=== PATIENT | female | born 1930 | race Caucasian/White ===

== ENCOUNTER 2017-03-04 13:01 | Inpatient (IN) | payer MEDICARE, BC ==
[~2017-03-04] VITALS: Ht 147.3 cm; Wt 39.2 kg
[2017-03-04] MEDS ORDERED: SOD CHLORIDE 0.9% 500 ML IV STA (14:40)
[2017-03-04] MEDS ORDERED: ACETAMINOPHEN 500 MG TAB PO STA (14:40)
--- NOTE | 2017-03-04 14:49 | ERA ---
ER Documentation Chief Complaint Date/Time DATE: 03/04/17 TIME: 14:45 Chief Complaint SYNCOPAL EPISODE FOR 3 MINS THIS MORNING; CHEST PAIN HPI 86-year-old female who presents with her family member. It appears the patient had a syncopal episode today. The patient had her regular breakfast and medications and went for a walk. When she came home she was not feeling well sat down and had a syncopal episode that was witnessed lasting approximately 2- 3 minutes without seizure activity. The patient had returned to baseline. The patient has describes some mild chest discomfort but did not have a prodrome of chest pain. She also describes a mild headache. The patient recently lost her son and has had increased social stressors. She denies any pleuritic pain or significant shortness of breath but has noted right lower extremity swelling for approximately 2-3 months. She is unsure if she has had an ultrasound. She recently had blood test that showed baseline anemia that is unchanged, no melena no hematochezia. She denies any mid back pain or neck pain. ROS All systems reviewed and are negative except as per history of present illness. Medications Home Meds Reported Medications Multivits-Min/Iron/FA/Lutein (Centrum Silver Women Tablet) 1 Each Tablet, 1 EACH PO DAILY, TAB 03/04/17 Sodium Polystyrene Sulfonate (Sodium Polystyrene Sulfonate Powder) 454 Gm Powder , 30 GM PO Q7D, EA 03/04/17 [Ferrous Sulfate] No Conflict Check, 65 MG PO DAILY 03/04/17 Olmesartan Medoxomil (Benicar) 40 Mg Tablet, 40 MG PO DAILY, #30 TAB 03/04/17 Metoprolol Succinate* (Toprol XL*) 25 Mg Tab.sr.24h, 25 MG PO DAILY, #30 TAB 03/04/17 Omeprazole* (Omeprazole*) 20 Mg Capsule.dr, 20 MG PO QAM, #30 CAP 03/04/17 Glipizide* (Glipizide*) 5 Mg Tablet, 5 MG PO AC BREAKFAST DINNER, TAB 03/04/17 Metformin Hcl* (Metformin Hcl*) 500 Mg Tablet, 500 MG PO WITH BREAKFAST DINNE, # 60 TAB 03/04/17 Aspirin* (Aspirin* EC) 81 Mg Tablet.dr, 81 MG PO DAILY, TAB 03/04/17 Hydralazine Hcl* (Hydralazine Hcl*) 50 Mg Tab, 50 MG PO TID, #90 TAB 03/04/17 Gabapentin* (Gabapentin*) 300 Mg Capsule, 300 MG PO QHS, #30 CAP 03/04/17 Amlodipine Besylate* (Amlodipine Besylate*) 10 Mg Tablet, 10 MG PO DAILY, #30 TAB 03/04/17 Atorvastatin Calcium* (Atorvastatin Calcium*) 20 Mg Tablet, 20 MG PO QHS, #30 TAB 03/04/17 Discontinued Reported Medications Ferrous Sulfate* (Ferrous Sulfate*) 325 Mg Tabec, 65 MG PO DAILY, TAB 03/04/17 Allergies Allergies: Coded Allergies: Penicillins (Unverified Allergy, Unknown, 03/04/17) PMhx/Soc History of Surgery: No Anesthesia Reaction: No Hx Neurological Disorder: No Hx Respiratory Disorders: No Hx Cardiac Disorders: Yes Hx Psychiatric Problems: No Hx Miscellaneous Medical Probl: Yes (HTN, diabetes) Hx Alcohol Use: No Hx Substance Use: No Hx Tobacco Use: No Smoking Status: Never smoker FmHx Family History: No diabetes Physical Exam Vitals Vital Signs Date Time Temp Pulse Resp B/P Pulse Ox O2 Delivery O2 Flow Rate FiO2 03/04/17 15:09 64 14 190/61 98 Room Air 03/04/17 13:06 98.1 64 18 196/116 95 Physical Exam General: Well developed, well nourished, no acute distress Head: Normocephalic, atraumatic. Eyes: Pupils equally reactive, EOM intact ENT: Moist mucous membranes Neck: Supple, no lymphadenopathy Respiratory: Lungs clear bilaterally, no distress Cardiovascular: RRR, no murmurs, rubs, or gallops Abdominal: Soft, non-tender, non-distended, no peritoneal signs : Deferred MSK: No edema, very mild right lower extremity unilateral swelling, 5/5 strength , no pulse deficits Neurologic: Alert and oriented, moving all extremities, normal speech, no focal weakness, no cerebellar signs Skin: No rash Psych: Normal mood Result Diagram: 03/04/17 1525 03/04/17 1525 Results 24 hrs Laboratory Tests Test 03/04/17 15:20 03/04/17 15:25 Bedside Glucose 267mg/dL White Blood Count 10.410^3/ul Red Blood Count 3.8810^6/ul Hemoglobin 11.4g/dl Hematocrit 33.7% Mean Corpuscular Volume 86.9fl Mean Corpuscular Hemoglobin 29.4pg Mean Corpuscular Hemoglobin Concent 33.8g/dl Red Cell Distribution Width 14.6% Platelet Count 86223^3/UL Mean Platelet Volume 10.5fl Neutrophils % 80.3% Lymphocytes % 9.4% Monocytes % 9.2% Eosinophils % 0.2% Basophils % 0.4% Nucleated Red Blood Cells % 0.0/100WBC Neutrophils # 8.310^3/ul Lymphocytes # 1.010^3/ul Monocytes # 1.010^3/ul Eosinophils # 0.010^3/ul Basophils # 0.010^3/ul Nucleated Red Blood Cells # 0.010^3/ul Prothrombin Time 11.7Sec Prothrombin Time Ratio 0.9 INR International Normalized Ratio 0.86 Activated Partial Thromboplast Time 27.3Sec Urine Color LT. YELLOW Urine Clarity CLEAR Urine pH 6.0 Urine Specific Miracle 1.015 Urine Ketones NEGATIVE Urine Nitrite NEGATIVE Urine Bilirubin NEGATIVE Urine Urobilinogen 0.2 E.U./dL Urine Leukocyte Esterase 2+ Urine Microscopic RBC 5-10/HPF Urine Microscopic WBC >50/HPF Urine Bacteria RARE Urine Hemoglobin 1+ Urine Glucose 0.5%% Urine Total Protein 2+ Sodium Level 137mmol/L Potassium Level 4.3mmol/L Chloride Level 100mmol/L Carbon Dioxide Level 23mmol/L Anion Gap 18 Blood Urea Nitrogen 23mg/dl Creatinine 0.81mg/dl Glucose Level 272mg/dl Calcium Level 9.7mg/dl Troponin I < 0.012ng/ml Current Medications Medications (Trade) Dose Ordered Sig/Yulisa Route PRN Reason Start Time Stop Time Status Last Admin Dose Admin Sodium Chloride (NS) 500 ml @ 500 mls/hr Q1H STAT IV 03/04/17 14:40 03/04/17 15:39 DC 03/04/17 15:46 Acetaminophen 1000 mg 1,000 mg ONCE STAT PO 03/04/17 14:40 03/04/17 14:42 DC 03/04/17 15:46 Ceftriaxone Sodium (Rocephin) 50 ml @ ud STK-MED ONCE IVPB 03/04/17 17:28 03/04/17 19:16 DC Aspirin (Aspirin) 325 mg STK-MED ONCE .ROUTE 03/04/17 18:57 03/04/17 19:17 DC IV Flush 10 ml 10 ml STK-MED ONCE .ROUTE 03/04/17 18:59 03/04/17 19:17 DC Sodium Chloride (NS) 100 ml @ ud STK-MED ONCE .ROUTE 03/04/17 18:59 03/04/17 19:17 DC Iodixanol (Visipaque Locm) 100 ml STK-MED ONCE .ROUTE 03/04/17 18:59 03/04/17 19:17 DC Enoxaparin Sodium (Lovenox) 60 mg STK-MED ONCE .ROUTE 03/04/17 19:02 03/04/17 19:18 DC Procedures/MDM EKG, MONITORS, & DIAGNOSTIC IMAGING: EKG: I reviewed and interpreted a 12-lead EKG. Rhythm: Normal sinus rhythm Ectopy: None Intervals: No abnormalities ST segments: No elevations or depressions T waves: No contiguous inversions Chest x-ray: Impression is cardiomegaly with calcified atherosclerosis of the aorta. Small right pleural effusion with associated basilar atelectasis. Hyperexpanded lungs with diffuse mild interstitial prominence in both lungs. Interstitial prominence could be chronic. Findings could reflect COPD. Dr. David at 3:[address] brain: System error and CT imaging is faxed to the emergency department. Impression from radiologist is 1. No intracranial hemorrhage or acute intracranial abnormality. #2 mild chronic appropriate volume loss. #3 atherosclerotic calcification of the internal carotid and vertebral arteries. Signed by Dr. dewey at 4:27 PM Right lower extremity duplex: Impression #1 no evidence of acute deep venous thrombosis involving the right lower extremity. 2. Linear echogenic foci within the right common and superficial femoral vein compatible with chronic DVT CTPA: PENDING LAB INTERPRETATION: There is a system issue therefore faxed laboratory reports have been given to me. Patient has a WBC of 10.4 hemoglobin of 11.4 and platelets of 321. Normal coagulation profile. Urinalysis with greater than 50 WBCs and positive leukocyte esterase, negative nitrites. Chemistry profile with a sodium of 137 potassium 4.3 chloride of 100 bicarb 23 because of 272 BUN of 23 creatinine is 0.81 troponin negative. MEDICAL DECISION MAKING: The patient presents to the emergency room with an episode of syncope now with hypertension headache and some chest discomfort. Her presentation has a very broad differential given her age and comorbidities. She also has significant social stressors. Given her clinical scenario however I must be concerned for possible cardiac arrhythmia, ACS, intracranial hemorrhage. Low clinical concern for subarachnoid hemorrhage. The patient did not have a prodrome of headache or chest pain therefore dissection, pulmonary embolism, subarachnoid hemorrhage seem less likely. The patient does however have mild right lower extremity swelling, this appears to be chronic. I do not suspect pulmonary embolism however if the patient has a positive duplex then CTPA would be indicated. Given that the patient has no tachycardia no pleuritic pain no significant hypoxia I do not believe the emergent CTPA is necessary at this time. I would strongly recommend hospitalization given the patient's age, comorbidities and chest pain. Aspirin to be held until CT imaging is negative. ER COURSE: The patient was given aspirin after negative CT brain. There is significant delay in the patient's throughput because of systemwide IT issues and delay in laboratory results, diagnostic imaging results. The patient has a lower extremity duplex that shows no evidence of acute DVT however possible chronic DVT. For this reason a CTPA has been ordered to rule out pulmonary embolism as the cause of the patient's syncope. She was given 1 mg/kg of Lovenox and the patient and family members describe no contraindications to anticoagulation. Orthostatic vital signs are normal, per request of admitting team. I kept the patient and/or family informed of laboratory and diagnostic imaging results throughout the emergency room course. DISPOSITION PLAN: Telemetry admission for management of syncope, chest pain CONSULTATION: Accepting care team and consultations: I discussed the current laboratory data, diagnostic imaging and emergency care provided. Admitting team: Dr. Goss Admitting team indication: Insurance directed Of note the CTPA is pending, to be followed by oncoming ER md and admitting team. Patient remains stable. Lovenox on board. 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
[2017-03-04 15:29] LABS: ADD SCAN DIFF NO
[2017-03-04 15:32] LABS: BASOPHILS % 0.4 % (0.0-2.0); EOSINOPHILS % 0.2 % (0.0-7.0); HEMATOCRIT 33.7 % (37.0-47.0); HEMOGLOBIN 11.4 g/dl (12.0-16.0); LYMPHOCYTES % 9.4 % (15.0-51.0); MEAN CORPUSCULAR HEMOGLOBIN 29.4 pg (29.0-33.0); MEAN CORPUSCULAR HGB CONC 33.8 g/dl (32.0-37.0); MEAN CORPUSCULAR VOLUME 86.9 fl (82.0-101.0); MEAN PLATELET VOLUME 10.5 fl (7.4-10.4); MONOCYTES % 9.2 % (0.0-11.0); NEUTROPHIL # 8.3 10^3/ul (1.6-7.5); NEUTROPHILS % 80.3 % (39.0-77.0); PLATELET COUNT 321 10^3/UL (140-415); RED BLOOD COUNT 3.88 10^6/ul (4.20-5.40); RED CELL DISTRIBUTION WIDTH 14.6 % (11.5-14.5); WHITE BLOOD COUNT 10.4 10^3/ul (4.8-10.8)
[2017-03-04 15:33] LABS: ADD UMIC YES; UR BILIRUBIN (Dip) NEGATIVE (NEGATIVE); UR BLOOD (Dip) 1+ (NEGATIVE); UR CLARITY CLEAR (CLEAR); UR COLOR LT. YELLOW (YELLOW); UR KETONES (Dip) NEGATIVE (NEGATIVE); UR LEUKOCYTE ESTERASE (Dip) 2+ (NEGATIVE); UR NITRITE (Dip) NEGATIVE (NEGATIVE); UR TOTAL PROTEIN (Dip) 2+ (NEGATIVE); UR UROBILINOGEN (Dip) 0.2 E.U./dL (0.1-1.0)
[2017-03-04 15:42] LABS: UR BACTERIA RARE
[2017-03-04 15:46] LABS: INR 0.86; PROTIME 11.7 Sec (12.2-14.2); PT RATIO 0.9
[2017-03-04 15:49] LABS: ANION GAP 18 (8-16); BLOOD UREA NITROGEN 23 mg/dl (7-20); CALCIUM 9.7 mg/dl (8.4-10.2); CARBON DIOXIDE 23 mmol/L (21-31); CHLORIDE 100 mmol/L (97-110); CREATININE 0.81 mg/dl (0.44-1.00); GLUCOSE 272 mg/dl (70-220); POTASSIUM 4.3 mmol/L (3.5-5.1); SODIUM 137 mmol/L (135-144)
[2017-03-04 15:53] LABS: PARTIAL THROMBOPLASTIN TIME 27.3 Sec (25.0-35.0)
[2017-03-04] MEDS ORDERED: ATOR20TA38 PO (15:57)
[2017-03-04] MEDS ORDERED: AMLO-147 PO (15:58)
[2017-03-04] MEDS ORDERED: GABA300C16 PO (15:58)
[2017-03-04] MEDS ORDERED: HYDR-3672 PO (15:59)
[2017-03-04] MEDS ORDERED: ASPI-664 PO (15:59)
[2017-03-04] MEDS ORDERED: METF500T4 PO (16:00)
[2017-03-04] MEDS ORDERED: GLIP5TAB13 PO (16:00)
[2017-03-04 16:02] LABS: TROPONIN-I < 0.012 ng/ml (0.00-0.12)
[2017-03-04] MEDS ORDERED: OMEP20CA16 PO (16:02)
[2017-03-04] MEDS ORDERED: METO25TA7 PO (16:02)
[2017-03-04] MEDS ORDERED: OLME40TA14 PO (16:03)
[2017-03-04] MEDS ORDERED: FER325 PO (16:08)
[2017-03-04] MEDS ORDERED: FERROUS SULFATE PO (16:10)
[2017-03-04] MEDS ORDERED: [UNRECOGNIZED DRUG - CODE] PO (16:12)
[2017-03-04] MEDS ORDERED: MULT-853 PO (16:13)
[2017-03-04] MEDS ORDERED: CEFTRIAXONE 1 GM/50 ML (PMX) 50 ML IVPB ONE (17:28)
[2017-03-04] MEDS ORDERED: ASPIRIN 325 MG TAB ONE (18:57)
[2017-03-04] MEDS ORDERED: SOD CHLORIDE 0.9% 100 ML ONE (18:59)
[2017-03-04] MEDS ORDERED: IODIXANOL LOCM 100 ML BTL ONE (18:59)
[2017-03-04] MEDS ORDERED: ENOXAPARIN 60 MG/0.6 ML SYG ONE (19:02)
--- NOTE | 2017-03-04 19:13 | RADRPT ---
PROCEDURE: CT Brain without contrast. CLINICAL INDICATION: Syncope. TECHNIQUE: A multiplanar CT of the brain was performed on a CT scanner utilizing axial imaging fro m the skull base through the vertex without IV contrast. The CTDIvol is 44.52 mGy and the DLP is 6 ml 30.2 mGycm. One or more of the following dose reduction techniques were utilized: Automated exp osure control, adjustment of the mA and/or kV according to patient size, use of iterative reconstruc tion technique. COMPARISON: None FINDINGS: No evidence of intracranial hemorrhage or abnormal extra-axial fluid collection. 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 Physiologic left basal ganglia calcification. The brain parench yma is otherwise normal attenuation and morphology with preservation of aldana white differentiation. The ventricles and subarachnoid spaces are prominent compatible with age appropriate volume loss. Atherosclerotic calcification of the internal carotid and vertebral arteries. The basal cisterns, posterior fossa contents, brainstem, craniocervical junction, orbits, pituitary axis, paranasal sinuses, mastoid air cells, and calvarium are unremarkable. IMPRESSION: 1. No intracranial hemorrhage or acute intracranial abnormality. 2. Mild chronic appropriate volume loss. 3. Atherosclerotic calcification of the internal carotid and vertebral arteries. RPTAT:AAJJ Physician Robert Date Time Electronically viewed and signed by Physician Robert on 03/04/2017 16:27 FELA/
--- NOTE | 2017-03-04 19:13 | RADRPT ---
PROCEDURE: XR Chest 1 view. CLINICAL INDICATION: Shortness of breath and syncope. TECHNIQUE: AP views of the chest were obtained. COMPARISON: None. FINDINGS: The heart is large. Calcified atherosclerosis is noted in the aorta. The lungs are hyperexpanded. Interstitial prominence is seen in both lungs. Blunting of the right costophrenic angle is seen. A telectasis is noted at the right lung base. The osseous structures are osteopenic, but appear gross ly intact. Degenerative changes are seen in the shoulders. IMPRESSION: Cardiomegaly with calcified atherosclerosis in the aorta. Small right pleural effusion with associated basilar atelectasis. Hyperexpanded lungs with diffuse mild interstitial prominence in both lungs. Interstitial prominenc e could be chronic. Findings could reflect COPD. RPTAT: AA .Edison David MD, Date Time Electronically viewed and signed by .Edison David MD, on 03/04/2017 15:46 .P/
--- NOTE | 2017-03-04 19:13 | RADRPT ---
PROCEDURE: US DVT. CLINICAL INDICATION: Right lower extremity pain. TECHNIQUE: Multiple longitudinal and transverse images of the right lower extremity veins were obt ained with aldana scale and color Doppler imaging. 2D grayscale measurements with compression, color Doppler flow, and augmentation was performed. COMPARISON: No prior studies are available for comparison. FINDINGS: The right common femoral, superficial femoral and popliteal veins are normally compressible througho ut. There is linear echogenic material in the right common and proximal superficial femoral vein ruffin ggesting a chronic deep venous thrombosis. Color flow otherwise demonstrates normal filling of the vessel. Normal waveforms are visualized and there is normal response to augmentation. IMPRESSION: 1. No evidence of an acute deep vein thrombosis involving the right lower extremity. 2. Linear echogenic foci within the right common and superficial femoral vein compatible with chron ic deep venous thrombosis. RPTAT: HMVK .Jean Morales MD, MD Date Time Electronically viewed and signed by .Jean Morales MD, MD on 03/04/2017 17:37 .K/
[2017-03-04] MEDS ORDERED: ACETAMINOPHEN 325 MG TAB PO PRN ×2 (19:30→22:00)
[2017-03-04] MEDS ORDERED: ENOXAPARIN 40 MG/0.4 ML SYG SC ONE (19:30)
[2017-03-04] MEDS ORDERED: ONDANSETRON 4 MG INJ IV PRN ×2 (19:30→22:00)
[2017-03-04] MEDS ORDERED: morphine 2 MG INJ IV PRN (22:00)
[2017-03-04 22:21] VITALS: BP 194/84; RESP 18
[2017-03-04 22:27] VITALS: PULSE 50
[2017-03-04 22:30] VITALS: Ht 147.3 cm; Wt 39.2 kg
[2017-03-05] VITALS (15 sets, daily range): BP systolic 131–186; BP diastolic 63–84; PULSE 44–55; RESP 16–20
[2017-03-05] MEDS ORDERED: PANTOPRAZOLE (EC) 40 MG TAB PO SCH (06:00)
[2017-03-05] MEDS: metFORMIN 500 MG TAB PO SCH ×2 (08:22→18:10)
[2017-03-05] MEDS: INSULIN ASPART [NOVOLOG] 3 ML PEN SC SCH ×3 (08:36→18:15)
[2017-03-05] MEDS ORDERED: NON-FORMULARY/PATIENT OWN MED (Omeprazole* 20 MG) PO SCH (09:00)
[2017-03-05] MEDS ORDERED: AMLODIPINE 10 MG TAB PO SCH (09:00)
[2017-03-05] MEDS ORDERED: LOSARTAN 50 MG TAB PO SCH (09:00)
[2017-03-05] MEDS ORDERED: ASPIRIN (EC) 81 MG TAB PO SCH (09:00)
[2017-03-05] MEDS ORDERED: METOPROLOL (XL) 25 MG TAB PO SCH (09:00)
[2017-03-05] MEDS ORDERED: LEVOFLOXACIN 500 MG TAB PO SCH (09:00)
[2017-03-05] MEDS ORDERED: NON-FORMULARY/PATIENT OWN MED (Olmesartan Medoxomil (Benicar) 40 MG) PO SCH (09:00)
--- NOTE | 2017-03-05 10:23 | HP ---
DATE OF ADMISSION: 03/04/2017 CHIEF COMPLAINT: Dizziness. HISTORY OF PRESENT ILLNESS: Ms. Goodwin presents to the emergency room at [facility] an episode of dizziness and possible passing out, though the history is not clear that she actuall y did lose consciousness. She certainly did not fall to the ground. What she relates is that she b ecame dizzy and unable to stand after going to the toilet. She states that she frequently suffers w ith dizziness, especially after taking her medications and especially when standing up. This has be en going on for some time. She has discussed it with her primary care physician who blames it on th e medications, according to her daughter. PAST MEDICAL HISTORY: Significant for hypertension and diabetes. MEDICATIONS: As an outpatient include 1. Norvasc 10 mg daily. 2. Lipitor 20 mg daily. 3. Hydralazine 50 mg 3 times a day. 4. Metoprolol 25 mg daily. 5. Benicar 40 mg daily. 6. Aspirin 81 mg daily. 7. Neurontin 300 mg daily. 8. Omeprazole 20 mg daily. 9. Glipizide 5 mg daily. 10. Metformin 500 mg b.i.d. 11. Multivitamin. 12. Iron sulfate. ALLERGIES: PENICILLIN. SOCIAL HISTORY: The patient lives at home in [place] with her daughter and daughter's famil y. She does not use a cane or a walker. She denies tobacco, alcohol, or illicit drug use but is ot herwise independent of activities of daily living. She does acknowledge that there have been many f alls. FAMILY HISTORY: Noncontributory. REVIEW OF SYSTEMS: Five systems reviewed and found not to be revealing. PHYSICAL EXAMINATION: VITAL SIGNS: Blood pressure is 176/77, pulse rate 47, respirations 20, temperature is 98.4. It domenico uld be noted the patient had orthostatic vital signs which revealed a lying blood pressure of 186/84 , pulse rate 47, and a standing blood pressure of 131/63, pulse rate 50 representing a full 30 point drop in mean arterial pressure. GENERAL: Pleasant elderly woman. No acute distress. Some suggestions of mild cognitive impairment . HEENT: Normocephalic, atraumatic without evident scleral icterus, perioral cyanosis. Mucous membra michaela moist. NECK: Soft and supple without masses. No evidence of jugular venous distention or carotid bruits. CHEST: Clear to auscultation and percussion bilaterally. HEART: Regular rate and rhythm, S1-S2, no added sounds. ABDOMEN: Soft, nontender, nondistended without palpable hepatosplenomegaly. EXTREMITIES: Without clubbing, cyanosis, or edema. SKIN: Without rashes. NEUROLOGICAL: Cranial nerves III through XII are intact. Tone, power, and coordination intact x4 l imbs. The patient was able to stand up on her own power; however, after doing so, she described althea t she had the dizziness again that was similar to what happened to her previously. LABORATORY STUDIES: Reveal hemoglobin 11.4 g/dL, white count of 10,400, platelets of 321,000. INR is 0.9. Sodium 137, potassium 4.3, chloride 100, bicarbonate 23, BUN 23, creatinine 0.81, glucose 2 72. Troponin is negative. UA shows greater than 50 white blood cells. IMAGING: CT scan of brain shows chronic volume loss. Chest x-ray reveals hyperexpansion with mild cardiomegaly. Venous Doppler of the legs shows a chronic thrombus in the right common femoral vein. ASSESSMENT AND PLAN: 1. Syncope: Most likely represents presyncope, almost certainly related to orthostatic hypotension caused by hypertension, antihypertensive medications, as well as diabetes with neuropathy. We will plan to add TEDs and abdominal binder. Begin physical therapy for symptom management. A detailed explanation and action plan regarding these symptoms has been provided to the patient's daughter. 2. Cardiac: Doubt any insidious cause of syncope. Await echocardiogram. 3. Diabetes with neuropathy. Continue current. 4. Anticipate discharge to home this p.m. following echocardiogram and physical therapy. We will p kendal to arrange home health physical therapy. Dictated By: TWAN BROWN MD RER/NTS Conf#: [id number] DID#: [id number]
--- NOTE | 2017-03-05 10:28 | RADRPT ---
PROCEDURE: CT angiogram chest. CLINICAL INDICATION: Shortness of breath. TECHNIQUE: CT angiogram of the chest was performed utilizing axial images with reconstructions in sagittal and coronal planes following the intravenous administration of 100 cc Visipaque 320 contras t. The administered radiation dose is CTDI 3.3 mGy, DLP 133 mGy-cm. COMPARISON: No pertinent prior examinations are submitted for comparison. FINDINGS: Pulmonary angiogram: The pulmonary arteries are adequately opacified to the level of the segmental pulmonary artery branches. There is minimal respiratory motion artifact. There is no evidence of p ulmonary embolus. Aortogram: There is no evidence of aortic dissection or aneurysm. Major branches of the aorta are patent. Atherosclerotic calcifications are noted in the aorta and its branches. Chest: There is moderate right pleural effusion with some compressive atelectasis of the right lower lobe. A 7 mm nodule is noted within the left lower lobe on image 64 of series 4. the tracheobronchial tr ee is unremarkable. There is mild to moderate cardiomegaly. Coronary artery calcifications are noted. Some mildly enlarged subcarinal and right hilar lymph nodes are noted, for example a subcarinal lymp h node measuring up to 12 mm in short axis on image 106 of series 3. Visualized Upper abdomen: Unremarkable. Osseous structures: Unremarkable. IMPRESSION: No evidence of pulmonary embolus. Moderate right pleural effusion with some associated atelectasis. 7 mm left lower lobe nodule. The patient has a history of smoking or neoplasm, follow-up CT is recom mended at 6-12 months and a 18-24 months. Otherwise, follow-up can be obtained and 82 24 months. Mild mediastinal and right hilar adenopathy which is nonspecific. RPTAT: HIKT .Slick Benitez MD, Date Time Electronically viewed and signed by .Slick Benitez MD, on 03/04/2017 21:00 .T/
[2017-03-05] MEDS ORDERED: FERROUS SULFATE 60 MG/ML 5ML CUP PO SCH (11:00)
[2017-03-05] MEDS ORDERED: MULTIVITAMINS/MINERALS TAB PO SCH (11:30)
[2017-03-05] MEDS ORDERED: LEVO500T72 PO (12:01)
--- NOTE | 2017-03-05 18:24 | RADRPT ---
Echocardiogram Report Patient Name: MAIKEL VALENZUELA Gender: Female Date: 1930 Study Date: 05-Mar-2017 [place] Maker: [facility] Location: [facility] Ref. Physician: TWAN BROWN Quality: Adequate Procedures: Transthoracic echocardiogram with complete 2D, M-Mode, and doppler examination. Indications: Syncope. 2D/M Mode Doppler Measurement Value Normal Ranges Measurement Value Normal Ranges LVIDd 2D 3.9 3.5 - 5.6 cm AV Peak Gerardo 1.7 m/sec LVIDs 2D 2.7 2.1 - 4.1 cm AV Peak PG 10.9 mmHg LVPWd 2D 0.9 0.6 - 1.1 cm AI Peak PG 48.7 mmHg IVSd 2D 0.9 0.6 - 1.1 cm AI Peak Gerardo 3.5 m/sec AoR Diam 2D 2.8 2.0 - 3.7 cm AI PHT 1421.5 msec EDV 2D 64.8 cm3 LVOT Peak Gerardo 1.3 m/sec ESV 2D 18.6 cm3 LVOT Peak PG 6.3 mmHg LA Dimen 2D 3.3 2.3 - 4.0 cm MV E Peak Gerardo 1.1 m/sec MV A Peak Gerardo 1.4 m/sec MV E/A 0.8 MV Decel Time 239 msec MV Decel [place] 5 MV E/A 0.8 TR Peak Gerardo 2.7 m/sec TR Peak PG 29.6 mmHg RVSP 33.0 mmHg Findings Left Ventricle: Normal left ventricular systolic function. Normal left ventricular cavity size. Normal left ventricular wall thickness. Ejection fraction is visually estimated at 65 %. Tissue Doppler/Mitral Doppler indices are consistent with impaired relaxation (Stage I diastolic dysfunction). Right Ventricle: Normal right ventricular size. Normal right ventricular systolic function. Left Atrium: The left atrium is normal in size. Right Atrium: The right atrium is normal in size. Mitral Valve: Mild mitral annular calcification. Mild mitral valve regurgitation. Aortic Valve: Normal appearance of the aortic valve. No hemodynamically significant aortic stenosis by doppler. Mild aortic valve regurgitation. Tricuspid Valve: Normal appearance of the tricuspid valve. Estimated peak PA systolic pressure 33 mmHg. There is mild tricuspid regurgitation. Pulmonic Valve: Normal pulmonic valve appearance. There is trace pulmonic regurgitation. Pericardium: Normal pericardium with no significant pericardial effusion. Aorta: Normal aortic root. IVC: Normal size and normal respiratory collapse consistent with normal right atrial pressure. Conclusions Normal left ventricular systolic function. Normal left ventricular cavity size. Normal left ventricular wall thickness. Ejection fraction is visually estimated at 65 %. Tissue Doppler/Mitral Doppler indices are consistent with impaired relaxation (Stage I diastolic dysfunction). Normal right ventricular size. Normal right ventricular systolic function. The left atrium is normal in size. The right atrium is normal in size. Mild mitral valve regurgitation. No hemodynamically significant aortic stenosis by doppler. Mild aortic valve regurgitation. Estimated peak PA systolic pressure 33 mmHg. There is mild tricuspid regurgitation. Normal pericardium with no significant pericardial effusion. Electronically Signed By: Jean Sheriff 05-Mar-2017 18:23:11 -0700 Patient Name: MAIKEL VALENZUELA Study Date: 05-Mar-2017 [id number]
[2017-03-05] MEDS ORDERED: GABAPENTIN 300 MG CAP PO SCH (21:00)
[2017-03-05] MEDS ORDERED: ATORVASTATIN 20 MG TAB PO SCH (21:00)
== END 2017-03-05 19:26 | disposition home or self-care (01) | DRG 312 ==
LOC: FTE 13:01 → TEL 19:24
PROVIDERS: ADMIT Legal Medicine; ATTEND Legal Medicine
DX: R55 Syncope and collapse (principal); I82.501 Chronic embolism and thrombosis of unspecified deep veins of right lower extremity; E11.9 Type 2 diabetes mellitus without complications; I10 Essential (primary) hypertension
CPT/HCPCS: 36415; 70450; 71010; 71275; 80048; 81001; 82962; 84484; 85025; 85610; 85730; 93005; 93306; 93971; 96372; J0696; J1815; J7040; Q9967

== ENCOUNTER → 2017-04-12 | Outpatient (CLI) | payer MEDICARE, BC ==
[~2017-04-12] MED LIST: AMLO-147 PO; ASPI-664 PO; ATOR20TA38 PO; FERROUS SULFATE PO; GABA300C16 PO; GLIP5TAB13 PO; HYDR-3672 PO; LEVO500T72 PO; METF500T4 PO; METO25TA7 PO; MULT-853 PO; OLME40TA14 PO; OMEP20CA16 PO; [UNRECOGNIZED DRUG - CODE] PO
--- NOTE | 2017-04-12 14:21 | RADRPT ---
PROCEDURE: XR Chest. CLINICAL INDICATION: RT PLEURAL EFFUSION TECHNIQUE: PA and Lateral views of the chest were obtained. COMPARISON: Chest x-ray 03/04/2017 FINDINGS: The cardiac silhouette is mildly enlarged. There are atherosclerotic calcifications of the aortic arch. Biapical pleural parenchymal scarring is noted. There is a small right pleural effusion with adjacent atelectasis, unchanged compared to prior chest x-ray of 03/04/2017. No pneumothorax, significant left pleural effusion, or new parenchymal consolidation is identified. There are degenerative changes of the visualized spine. IMPRESSION: 1. Mild cardiomegaly. 2. Small right pleural effusion with adjacent atelectasis, unchanged compared to prior study of . 3. Thoracic aortic atherosclerotic disease. RPTAT: PP Physician Shelley Date Time Electronically viewed and signed by Physician Shelley on 04/12/2017 14:21 /
== END | disposition home or self-care (01) ==
LOC: RAD 08:38
PROVIDERS: ATTEND Internal Medicine
DX: J90 Pleural effusion, not elsewhere classified (principal)
CPT/HCPCS: 71020